=== PATIENT | female | born 1945 | race African-American/Black ===

== ENCOUNTER → 2017-05-15 | Outpatient (CLI) | payer MEDICARE, OTHER ==
[~2017-05-15] MED LIST: GLUCOPHAGE500 MG/TAB PO; HYZAAR 25 MG-101 TAB PO; LIPITOR 40MG TA40 MG PO; MULTIPLE VITAMI1 CAP PO; NORCO 325 MG-7.1 TAB PO; NORVASC 5MG5 MG/TAB PO; PLAVIX 75MG TAB75 MG PO; PRILOSEC 20MG20 MG PO; PROTONIX20 MG PO; ROXICODONE 55 MG/TAB PO; XARELTO10 MG PO
== END ==
LOC: COL.VAS 07:50
DX: I08.1 Rheumatic disorders of both mitral and tricuspid valves (principal)

== ENCOUNTER → 2017-07-24 | Outpatient (CLI) | payer MEDICARE, OTHER | LOC: MC.RAD 10:57 | DX: Z12.31 Encounter for screening mammogram for malignant neoplasm of breast (principal) ==

== ENCOUNTER → 2018-08-03 | Outpatient (CLI) | payer MEDICARE, OTHER | LOC: MC.RAD 09:00 | DX: Z12.31 Encounter for screening mammogram for malignant neoplasm of breast (principal) ==

== ENCOUNTER → 2019-08-24 | Outpatient (CLI) | payer MEDICARE, OTHER ==
[~2019-08-24] MED LIST changes: +AMOXICILLIN 50500 MG PO; +FERROUSAL325 MG PO; +FLAGYL500 MG PO; +NORVASC 10MG10 MG PO; +PRAVACHOL 40MG40 MG PO; +TYLENOL 8 HR PO
== END ==
LOC: MC.RAD 11:27
DX: Z12.31 Encounter for screening mammogram for malignant neoplasm of breast (principal)

== ENCOUNTER → 2022-07-10 | Outpatient (CLI) | payer MEDICARE, OTHER | LOC: MC.RAD 09:45 | DX: Z12.31 Encounter for screening mammogram for malignant neoplasm of breast (principal) ==